=== PATIENT | male | born 1965 | race Hispanic/Latino ===

== ENCOUNTER 2017-08-21 05:38 | Day surgery (SDC) | payer OTHER ==
[~2017-08-21] VITALS: Ht 172.7 cm; Wt 96.6 kg
[~2017-08-21 05:38] MED LIST: DOCUSATE SODIU250 MG PO; RISPERIDONE2 MG PO; SERTRALINE HCL100 MG PO; TRAZODONE HCL50 MG PO
--- NOTE | 2017-08-21 07:54 | NUR ---
08/21/17 Papa4 Lyndsay Renteria 0754-PATIENT ARRIVED TO PACU ON 10L MASK O2 SAT 97% PATIENT NONAROUSABLE. ORAL AIRWAY IN PLACE. BP 78/52 IVF INFUSING 0752-BP 81/57 VIDYA HYMAN ADMINISTERED PHENYLEPHRINE IVP. 0754-BP INCREASING TO 88/62
--- NOTE | 2017-08-23 08:29 | OR ---
[facility] [address], [place] [address] Signed DATE OF OPERATION: 08/21/2017 SURGEON: Hazel Vergara MD PREOPERATIVE DIAGNOSIS: Screening. POSTOPERATIVE DIAGNOSIS: Moderate internal hemorrhoids. PROCEDURE: Colonoscopy without biopsy. ESTIMATED BLOOD LOSS: None. INDICATIONS: Jb is a 51-year-old gentleman from our [facility]. Initially, he had a change in bowel habits with constipation. He had been asked to see me for colonoscopy. In the meantime, he said his constipation seems to be better. However, he is over the age of 48 and therefore he is in need of a screening colonoscopy. He told me there is no family history of colon cancer or polyps. I explained to Jb the nature of the colonoscopy along with its risks including, but not limited to gas bloating, crampy abdominal pain, bleeding, perforation, requiring surgery, and missed diagnosis. We also discussed the need for IV conscious sedation. Given his daily need for trazodone, sertraline, risperidone, we decided anesthesia provider would be appropriate for not only airway control, but infusion of propofol. He had expressed understanding and wished to proceed. PROCEDURE NOTE: Jb was taken into our endoscopy suite and placed in the left lateral decubitus position. He was given IV sedation with the propofol per our nurse intelligence senior sergeant. Indeed, he required a moderate amount and to keep him adequately sedated for the procedure. Once he was sedated, a digital rectal exam was performed and this was unremarkable. He was starting to get some induration to his prostate gland. The adult colonoscope was inserted and advanced all around into the cecum under direct visualization of camera without difficulty. He had quite a bit of bilious liquid stool coming through the ileocecal valve. We spent some time there suctioning out the fluid. The scope was then slowly withdrawn. We saw no pathology throughout his entire colon or rectum. Upon retroflexion of scope in the rectum, he does have minimal to moderate Electronically Signed By: HAZEL VERGARA MD 08/23/17 0829 PATIENT NAME: JB REDDING OPERATIVE REPORT DATE OF : 61 REPORT #: [id number] PHYSICIAN: HAZEL VERGARA MD PCP: VINNY MICHEL MD REPORT IS CONFIDENTIAL AND NOT TO BE RELEASED WITHOUT AUTHORIZATION [facility] [address], [place] [address] Signed internal hemorrhoid columns. After this, the gas was suctioned out and the colonoscope removed. Jb tolerated the procedure quite well. RECOMMENDATIONS: I can see Jb in 10 years for repeat colonoscopy. Hazel Vergara MD ALB/MODL /[id number] cc: MD Vinny Urena MD Copies: HAZEL VERGARA MD, LELAND MD ~ Electronically Signed By: HAZEL VERGARA MD 08/23/17 0829 PATIENT NAME: JB REDDING OPERATIVE REPORT DATE OF : 61 REPORT #: [id number] PHYSICIAN: HAZEL VERGARA MD PCP: VINNY MICHEL MD REPORT IS CONFIDENTIAL AND NOT TO BE RELEASED WITHOUT AUTHORIZATION
== END 2017-08-21 08:42 | disposition home or self-care (01) ==
LOC: DS 05:38 → OPS 05:38 → DS 06:45 → OPS 08:42
PROVIDERS: Colon & Rectal Surgery
PROC: 0DJD8ZZ Inspection of Lower Intestinal Tract, Via Natural or Artificial Opening Endoscopic (ICD-10-PCS; principal; 2017-08-21 06:45)
DX: Z12.11 Encounter for screening for malignant neoplasm of colon (principal); K64.8 Other hemorrhoids; G89.29 Other chronic pain; M54.9 Dorsalgia, unspecified; K59.00 Constipation, unspecified; Z87.891 Personal history of nicotine dependence; Z98.890 Other specified postprocedural states; Z79.899 Other long term (current) drug therapy
CPT/HCPCS: J2704; J7120